=== PATIENT | female | born 1980 | race Two or more races ===

== ENCOUNTER 2024-07-11 15:17 | Emergency (ER) | payer OTHER ==
[~2024-07-11] VITALS: Ht 160 cm; Wt 97.5 kg
[2024-07-11] MEDS ORDERED: FAMOTIDINE/PF 20 MG in 0.9 % SODIUM CHLORIDE 8 ML IV PUSH STA (16:31)
[2024-07-11] MEDS ORDERED: 0.9 % SODIUM CHLORIDE 1,000 ML IV SCH (16:45)
[2024-07-11] MEDS ORDERED: ONDANSETRON HCL 2 MG/ML VIAL IV ONE ×2 (16:45)
[2024-07-11] MEDS ORDERED: KETOROLAC TROMETHAMINE 30 MG VIAL IV ONE (16:45)
[2024-07-11] MEDS ORDERED: KETOROLAC TROMETHAMINE 30 MG VIAL ONE (16:48)
[2024-07-11] MEDS ORDERED: ONDANSETRON HCL 2 MG/ML VIAL ONE (16:48)
[2024-07-11] MEDS ORDERED: FAMOTIDINE/PF 20 MG/2 ML VIAL ONE (16:48)
[2024-07-11 17:16] LABS: HEMATOCRIT 32.6 % (36.0-45.00); HEMOGLOBIN 10.9 g/dL (12.0-15.00); MEAN CORPUSCULAR HEMOGLOBIN 27.3 pg (27.00-32.0); MEAN CORPUSCULAR HGB CONC 33.3 g/dl (32.0-36.0); PLATELET COUNT 260 K/uL (150-450); RED BLOOD COUNT 3.98 M/uL (4.00-6.00); RED CELL DISTRIBUTION WIDTH 16.4 % (11.5-14.5)
[2024-07-11 17:30] LABS: ALBUMIN 3.5 gm/dL (3.4-5.0); ALKALINE PHOSPHATASE 90 U/L (50-136); ALT/SGPT 15 U/L (12-78); AMYLASE 46 U/L (25-115); ANION GAP 7 (10.0-20.0); AST/SGOT 7 U/L (15-37); BILIRUBIN TOTAL 0.42 mg/dL (0.3-1.2); BILIRUBIN,CONJUGATED < 0.10 mg/dL (0.0-0.2); BILIRUBIN,UNCONJUGATED 0.32 mg/dL (0.0-0.6); BLOOD UREA NITROGEN 9 mg/dL (7-18); BUN CREA RATIO 14 (7.0-25.0); CALCIUM 8.9 mg/dL (8.5-10.1); CARBON DIOXIDE 30 mEq/L (21-32); CHLORIDE 109 mmol/L (98-107); CREATININE SERUM 0.66 mg/dL (0.55-1.02); GFR 96.41; GLOBULINA 4.6 G/DL (2.4-3.5); GLUCOSE FASTING 95 mg/dL (65-100); LIPASE 30 U/L (13-75); OSMOLALITY SERUM 282 MOSM/KG (275-295); POTASSIUM 3.79 mEq/L (3.5-5.1); SODIUM 142 mmol/L (136-145); TOTAL PROTEIN 8.1 gm/dL (6.4-8.2)
[2024-07-11] MEDS ORDERED: CARAFATE1 GM PO (18:35)
[2024-07-11] MEDS ORDERED: PEPCID AC20 MG PO (18:35)
[2024-07-11] MEDS ORDERED: ZOFRAN8 MG PO (18:35)
[2024-07-11] MEDS ORDERED: MAG HYDROX/ALUMINUM HYD/SIMETH 30 ML BLIST.PACK PO ONE ×2 (18:41→18:45)
[2024-07-11] MEDS ORDERED: SUCRALFATE 1 G TABLET PO ONE (18:45)
[2024-07-11] MEDS ORDERED: DICY20TA PO (18:53)
[2024-07-11] MEDS ORDERED: DICYCLOMINE HCL 10 MG CAPSULE PO ONE (18:54)
[2024-07-11] MEDS ORDERED: DICYCLOMINE HCL 10 MG CAPSULE PO STA (19:00)
== END 2024-07-11 19:06 | disposition home or self-care (01) ==
LOC: ER 15:17
PROVIDERS: General Practice
DX: K29.70 Gastritis, unspecified, without bleeding (principal); R10.9 Unspecified abdominal pain; I10 Essential (primary) hypertension; Z88.6 Allergy status to analgesic agent

== ENCOUNTER 2024-12-24 11:37 | Emergency (ER) | payer OTHER ==
[~2024-12-24] VITALS: Ht 160 cm; Wt 99.8 kg
[~2024-12-24 11:37] MED LIST: CARAFATE1 GM PO; DICY20TA PO; PEPCID AC20 MG PO; ZOFRAN8 MG PO
[2024-12-24] MEDS ORDERED: ZETIA10 MG (11:51)
[2024-12-24] MEDS ORDERED: ZYRTEC10 MG (11:51)
[2024-12-24] MEDS ORDERED: MAGNESIUM SULFATE 50% 1,000 MG/2 ML VIAL ONE (12:00)
[2024-12-24] MEDS ORDERED: LEVALBUTEROL HCL 1.25 MG/3 ML SOLUTION IH SCH (12:00)
[2024-12-24] MEDS ORDERED: MAGNESIUM SULFATE/D5W 100 ML IV NR (12:00)
[2024-12-24] MEDS ORDERED: LEVALBUTEROL HCL 1.25 MG/3 ML SOLUTION IH ONE (12:21)
[2024-12-24 12:54] LABS: HEMATOCRIT 35.7 % (36.0-45.00); HEMOGLOBIN 11.3 g/dL (12.0-15.00); MEAN CELL VOLUME 82.5 fL (80.00-100.00); MEAN CORPUSCULAR HEMOGLOBIN 26.2 pg (27.00-32.0); MEAN CORPUSCULAR HGB CONC 31.8 g/dl (32.0-36.0); PLATELET COUNT 265 K/uL (150-450); RED BLOOD COUNT 4.32 M/uL (4.00-6.00); RED CELL DISTRIBUTION WIDTH 16.3 % (11.5-14.5)
[2024-12-24] MEDS ORDERED: MEDROLPACK PO (13:24)
[2024-12-24] MEDS ORDERED: ZITHROMAX500 MG PO (13:24)
[2024-12-24] MEDS ORDERED: IPRAT-ALBUT 0.5-3 ML IH (13:24)
[2024-12-24] MEDS ORDERED: TUSNEL LIQUID178 ML PO (13:24)
== END 2024-12-24 13:36 | disposition home or self-care (01) ==
LOC: ER 11:37
PROVIDERS: General Practice
DX: R06.02 Shortness of breath (principal); J45.909 Unspecified asthma, uncomplicated; Z20.822 Contact with and (suspected) exposure to COVID-19; Z88.8 Allergy status to other drugs, medicaments and biological substances